=== PATIENT | male | born 2000 | race Hispanic/Latino ===

== ENCOUNTER 2021-10-10 11:49 | Emergency (ER) | payer OTHER ==
[~2021-10-10] VITALS: Ht 165.1 cm; Wt 95.3 kg
== END 2021-10-10 16:00 | disposition home or self-care (01) ==
LOC: ER 12:13
DX: S29.012A Strain of muscle and tendon of back wall of thorax, initial encounter (principal); M79.605 Pain in left leg; V43.52XA Car driver injured in collision with other type car in traffic accident, initial encounter; Y92.488 Other paved roadways as the place of occurrence of the external cause
CPT/HCPCS: 72072; 99283